=== PATIENT | female | born 1960 | race African-American/Black ===

== ENCOUNTER 2024-07-02 06:40 | Inpatient (IN) | payer OTHER ==
[2024-06-30 17:45] VITALS: BMI 30.7
[2024-07-02] MEDS ORDERED: oxyCODONE HCL 5 MG TABLET PO PRN (07:53)
[2024-07-02] MEDS ORDERED: ONDANSETRON 4 MG/2 ML VIAL IVPUSH PRN (07:53)
[2024-07-02] MEDS ORDERED: PROPOFOL 20 ML ONE (09:49)
[2024-07-02] MEDS ORDERED: LIDOCAINE HCL/PF 2% SDV 5ML VIAL ONE (09:49)
[2024-07-02] MEDS ORDERED: MIDAZOLAM HCL 2 MG/2 ML SINGLE DOSE VIAL ONE (09:49)
[2024-07-02] MEDS ORDERED: SUCCINYLCHOLINE CHLORIDE 200 MG/10 ML SYRINGE ONE (09:49)
[2024-07-02] MEDS ORDERED: SCOPOLAMINE HYDROBROMIDE 1 PATCH PATCH.TD72 ONE (10:21)
[2024-07-02] MEDS ORDERED: ceFAZolin SODIUM 1 GM VIAL ONE (10:42)
[2024-07-02] MEDS ORDERED: DEXAMETHASONE SOD PHOSPHATE 4 MG/1 ML VIAL ONE (10:42)
[2024-07-02] MEDS: ceFAZolin SODIUM 1 GM VIAL IVPB ONE (10:45)
[2024-07-02] MEDS ORDERED: ROCURONIUM BROMIDE 50 MG/5 ML SYRINGE ONE (11:05)
[2024-07-02] MEDS ORDERED: ACETAMINOPHEN INJECTION 100 ML ONE (13:10)
[2024-07-02] MEDS ORDERED: PROMETHAZINE HCL 25 MG/1 ML VIAL IVPB PRN (13:13)
[2024-07-02] MEDS: ACETAMINOPHEN 1000 MG/100 ML BAG IVPB ONE (13:15)
[2024-07-02] MEDS ORDERED: LACTATED RINGERS SOLUTION 1,000 ML IV SCH (13:15)
[2024-07-02] MEDS: PHENAZOPYRIDINE HCL 100 MG TABLET (FP) PO ONE (13:53)
[2024-07-02] MEDS: LACTATED RINGERS SOLUTION 1,000 ML IV SCH (14:00)
[2024-07-02] MEDS: GABAPENTIN 300 MG CAPSULE PO ONE (14:10)
[2024-07-02] MEDS: ACETAMINOPHEN 1000 MG/100 ML BAG IVPB SCH (14:59)
[2024-07-02] MEDS ORDERED: CEFAZOLIN 2 GM/D5W 2 GM/50 ML ML IVPB SCH (18:00)
[2024-07-02] MEDS: CEFAZOLIN SODIUM 2 GM in DEXTROSE 5%-WATER 100 ML IVPB SCH (18:02)
[2024-07-02] MEDS: ACETAMINOPHEN 500 MG TABLET (FP) PO ONE (19:37)
[2024-07-03] MEDS ORDERED: ACETAMINOPHEN INJECTION 100 ML ONE (05:06)
[2024-07-03 07:25] LABS: HEMATOCRIT 39.4 % (32.4-45.2); MCH 30.9 pg (25.7-33.7); MEAN CELL VOLUME 93.5 fl (80-96); MEAN PLT VOLUME 10.3 fl (7.5-11.1); PLATELET COUNT 161 10^3/uL (134-434); RBC 4.22 M/mm3 (3.60-5.2); RDW 14.2 % (11.6-15.6); WHITE BLOOD COUNT 8.4 K/mm3 (4.0-10.0)
[2024-07-03] MEDS: OMEGA-3 ACID ETHYL ESTERS (FATTY-ACIDS) 1 GM CAPSULE (FP) PO SCH (09:49)
[2024-07-03] MEDS: VITAMIN E 400 INTERNATIONAL-UNITS CAPSULE (FP) PO SCH (09:49)
[2024-07-03] MEDS: MAGNESIUM OXIDE 400 MG TABLET (FP) PO SCH (09:49)
[2024-07-03] MEDS: MULTIVITAMINS (DAILY MVI) TABLET (FP) PO SCH (09:49)
[2024-07-03] MEDS ORDERED: IBUPROFEN 800 MG/8 ML IJ IVPB PRN (20:12)
[2024-07-03] MEDS ORDERED: ACETAMINOPHEN 325 MG TABLET (FP) PO PRN (20:26)
[2024-07-03] MEDS: IBUPROFEN 600 MG TABLET (FP) PO PRN (20:40)
[2024-07-03 22:54] VITALS: RESP 18
[2024-07-03] MEDS: HYDROmorphone HCL 2 MG TABLET PO PRN (22:58)
[2024-07-04 09:37] VITALS: BP 133/74; PULSE 96; TEMP 97.5
== END 2024-07-04 16:39 | disposition home or self-care (01) | DRG 743 ==
LOC: J7W 06:40 → J2C 07:27 → EDSTATUS 12:00 → J3W 15:00
PROVIDERS: ADMIT Obstetrics & Gynecology; ATTEND Obstetrics & Gynecology
PROC: 0UT90ZZ Resection of Uterus, Open Approach (ICD-10-PCS; principal; 2024-07-02 11:00)
PROC: 0UT70ZZ Resection of Bilateral Fallopian Tubes, Open Approach (ICD-10-PCS; 2024-07-02 11:00)
DX: D25.9 Leiomyoma of uterus, unspecified (principal)
CPT/HCPCS: 36415; 85027; 86850; 86900; 86901; 88304-TC; 88305-TC; 88307-TC; 94760; J0131